=== PATIENT | female | born 1960 | race Caucasian/White ===

== ENCOUNTER 2022-11-01 05:49 | Day surgery (SDC) | payer OTHER ==
[~2022-11-01] VITALS: Ht 157.5 cm; Wt 68.0 kg
[~2022-11-01 05:49] MED LIST: CLONAZEPAM1 MG PO
== END 2022-11-01 12:50 | disposition home or self-care (01) ==
LOC: CIR.AMB 05:49
PROVIDERS: ATTEND Surgery
DX: K80.10 Calculus of gallbladder with chronic cholecystitis without obstruction (principal); Z20.822 Contact with and (suspected) exposure to COVID-19; Z87.891 Personal history of nicotine dependence